=== PATIENT | female | born 1960 | race Caucasian/White ===

== ENCOUNTER 2017-04-21 16:19 | Inpatient (IN) | payer BC, SELFPAY ==
[~2017-04-21 16:19] MED LIST: ISOVUE-370 76%-LOCM 1 ML ONE
[2017-04-21] MEDS ORDERED: Nitroglycerin 0.4 MG TAB (25 Tab Bottle) ONE (16:30)
[2017-04-21] MEDS ORDERED: Ondansetron HCl/PF 4 MG/2 ML Vial ONE ×2 (16:35→19:50)
[2017-04-21 16:38] LABS: #Eosinphils 0.3 thou/uL (0.0-0.7); #Lymphocytes 3.2 thou/uL (1.20-3.40); #Monocytes 0.7 thou/uL (0.11-0.59); #Neutrophils 5.6 thou/uL (1.40-6.50); %Basophils 0.5 % (0.0-1.0); %Eosinophils 3.2 % (0.0-10.0); %Lymphocytes 32.1 % (21.0-51.0); %Monocytes 7.6 % (0.0-10.0); %Neutrophils 56.6 % (42.0-75.0); Hemoglobin 15.6 g/dL (12.0-16.0); Mean Corpuscular HGB CONC 35.1 g/dL (32.0-36.0); Mean Corpuscular Hemoglobin 32.9 pg (27.0-31.0); Mean Corpuscular Volume 93.7 fl (81.0-99.0); Platelet Count 305 thou/uL (130-400); RBC Distribution Width 12.3 % (11.5-14.5); Red Blood Cell (RBC) Count 4.74 mill/uL (4.20-5.40); White Blood Cell (WBC) Count 9.8 thou/uL (4.8-10.8)
[2017-04-21] MEDS ORDERED: Milk Of Magnesia 30 ML UDCUP ONE (16:49)
[2017-04-21] MEDS ORDERED: Lidocaine Viscous Sol 2% 15 ml UD Cup ONE (16:49)
[2017-04-21 16:58] LABS: ALT (SGPT) 54 U/L (8-55); AST (SGOT) 83 U/L (5-34); Albumin 4.8 g/dL (3.5-5.0); Alkaline Phosphatase 110 U/L (40-150); Anion Gap 17 mmol/L (10-20); BUN (Urea Nitrogen) 16 mg/dL (9.8-20.1); Bilirubin, Total 0.7 mg/dL (0.2-1.2); Calc. Creatinine Clearance 0 mL/min (70-130); Calcium 10.1 mg/dL (7.8-10.44); Carbon Dioxide 24 mmol/L (22-29); Chloride 102 mmol/L (98-107); Estimated GFR-MDRD 77; Glucose 94 mg/dL (70-105); Lipase 904 U/L (8-78); Potassium 3.7 mmol/L (3.5-5.1); Protein, Total 7.8 g/dL (6.0-8.3); Sodium 139 mmol/L (136-145)
[2017-04-21 17:03] LABS: CKMB 1.8 ng/mL (0-6.6); Troponin I Less than 0.010 ng/mL (< 0.028)
--- NOTE | 2017-04-21 18:20 | RAD ---
PORTABLE UPRIGHT FRONTAL CHEST RADIOGRAPH 04/21/17 COMPARISON: None. HISTORY: Chest pain with shortness of breath. FINDINGS: There is no pneumothorax, pleural fluid, focal consolidation, or alveolar edema. The heart and medias tinal contours are unremarkable. IMPRESSION: No acute findings. POS: [facility]
[2017-04-21] MEDS ORDERED: Morphine 4 MG/ML VIAL ONE (19:54)
[2017-04-21] MEDS ORDERED: Ondansetron HCl/PF 4 MG/2 ML Vial IVP PRN (21:20)
[2017-04-21] MEDS ORDERED: Ondansetron ODT 4 MG TAB SL PRN (21:20)
[2017-04-21] MEDS ORDERED: Acetaminophen 325 MG TAB PO PRN (21:20)
[2017-04-21 21:44] VITALS: BMI 34.6
[2017-04-21] MEDS ORDERED: HYDROcodone/Acetaminophen 5/325 mg Tablet PO PRN (21:54)
[2017-04-21] MEDS ORDERED: Morphine 5 MG/ML SYRINGE SLOW IVP PRN (21:56)
--- NOTE | 2017-04-21 21:57 | CT ---
CT OF ABDOMEN AND PELVIS 04/21/17 COMPARISON: None. HISTORY: Chest pain, shortness of breath and nausea. TECHNIQUE: Serial axial CT imaging obtained at 5 mm intervals from the lung bases through the pubic symphysis wi th IV contrast. Coronal reformatted imaging obtained. FINDINGS: The imaged lung bases are unremarkable. No free intraperitoneal air noted. There is mild gallbladder distention. Multiple gallstones are noted measuring up to 1.9 cm. The liver , spleen, pancreas, adrenal glands, and kidneys are unremarkable. Lack of oral contrast limits assessment of the bowel. Imaged portions of the appendix appear grossly unremarkable. There is distal colonic diverticulosis involving the sigmoid colon with scattered addit ional areas of colonic diverticulosis involving the descending colon and transverse colon. No convinc ing evidence for acute diverticulitis. The vascular structures of the abdomen/pelvis appear patent. No lymphadenopathy is seen within the ab domen or pelvis. The osseous structures demonstrate areas of degenerative change involving the lower lumbar spine facet joints. IMPRESSION: 1. Cholelithiasis with mild gallbladder distention. 2. Colonic diverticulosis with no convincing evidence for diverticulitis. 3. No evidence for appendicitis. POS: [facility]
[2017-04-21] MEDS: Sodium Chloride 0.9% 1,000 ML IV SCH (22:15)
--- NOTE | 2017-04-21 22:53 | HP ---
DATE OF ADMISSION: 04/21/2017 CHIEF COMPLAINT: Abdominal pain. HISTORY OF PRESENT ILLNESS: This is a 57-year-old white female with no known past medical history of any medical condition here. She is otherwise in very good health. She has a known history of drink ing alcohol. She drinks wine one glass every day. She has a strong family history of coronary arter y disease. Her father and her uncles at the age of 45-49. So she is always very cautious about her health and she does take good care of herself. She had a recent surgery, 3 months ago with hyst erectomy for fibroids and polyps. For this, she was very careful about her abdominal pain. Today, s he was in the yard at around 12:00 in the afternoon. She was working in the yard and she felt sudden onset of abdominal pain, which she thought could be the pain related to her recent surgery, but as t he pain was moving up towards the chest, she got frightened and had perspirations and was very anxiou s and she decided to come to the ER to evaluate for coronary artery disease. Patient was seen and sh e had a CT of the abdomen done, which showed evidence of pancreatitis. She also had elevated lipase levels. Based on her alcohol history and CT findings, it was decided that the patient has acute panc reatitis, so patient was started on IV fluids in the ER and with IV morphine, which did help her pain . She was not nauseous, no vomiting, no diarrhea, no constipation. She does have a gallbladder. CT of the abdomen did not show any gallstones in the gallbladder. No evidence of any gallbladder wall thickening was noted on the CT. PAST MEDICAL HISTORY: None. PAST SURGICAL HISTORY: Patient had hysterectomy and history of childbirth in the past. SOCIAL HISTORY: Patient is not a nonsmoker. She does drink alcohol, suggested about she drinks one can of wine every day. No history of illicit drug use. FAMILY HISTORY: Significant family history of coronary artery disease with father at the age of 49 of massive heart attack. One of her uncles also at the young age and also her grandfather d ied at young age with a massive heart attack. ALLERGIES: No known drug allergies. HOME MEDICATIONS: None. REVIEW OF SYSTEMS: All 12 systems are reviewed with the patient thoroughly and found to be negative at this time. System reviewed, HEENT, CVS, WASTE BALER, respiratory, GI, , musculoskeletal, skin and integ ument, psychiatric. All systems are reviewed. Constitutional: Weight loss or gain, sense of well-b eing, ability to conduct usual activities, exercise tolerance. Skin/Breast: Rash, itching, changes in hair growth or loss, nail changes, breast lumps, tenderness, swelling, nipple discharge. Eyes: V ision, double vision, tearing, blind spots, pain. ENT/Mouth: Headaches (location, time of onset, du ration, precipitating factors), vertigo, lightheadedness, injury. Vision, double vision, tearing, bl ind spots, pain, nose bleeding, colds, obstruction, discharge, dental difficulties, gingival bleeding , dentures, neck stiffness, pain, tenderness, masses in thyroid or other areas. Cardiovascular: Pre cordial pain, substernal distress, palpitations, syncope, dyspnea on exertion, orthopnea, nocturnal p aroxysmal dyspnea, edema, cyanosis, hypertension, heart murmurs, varicosities, phlebitis, claudicatio n. Respiratory: Pain, shortness of breath, wheezing, stridor, cough, hemoptysis, fever or night swe ats. Gastrointestinal: Poor appetite, dysphagia, indigestion, abdominal pain, heartburn, eructation , nausea, vomiting, hematemesis, jaundice, constipation, or diarrhea, abnormal stools (francisco-colored, tarry, bloody, greasy, foul smelling), flatulence, hemorrhoids, recent changes in bowel habits. Rafia tourinary: Urgency, frequency, dysuria, nocturia, hematuria, polyuria, oliguria, unusual (or change in) color of urine, stones, hesitancy, change in size of stream, dribbling, acute retention or incont inence, libido, potency. Musculoskeletal: Pain, swelling, redness or heat of muscles or joints, shepard itation, of motion, muscular weakness, atrophy, cramps. Neurologic/Psychiatric: Convulsions, paraly zes, tremor, incoordination, paresthesias, difficulties with memory of speech, sensory or motor distu rbances, or muscular coordination (ataxia, tremor), emotional problems, anxiety, depression, previous psychiatric care, unusual perceptions, hallucinations. Allergy/Immunologic: Skin rash, anemia, ble eding tendency, polydipsia, polyuria, intolerance to heat or cold. PHYSICAL EXAMINATION: VITAL SIGNS: Blood pressures of 152/67, heart rate is 53, respiration rate 18, saturation 96%. GENERAL: The patient is moderately built, moderately nourished, does not appear to be in acute distr ess at this time. She is alert and oriented x3. HEENT: Atraumatic, normocephalic. PERRLA. Extraocular movements are intact. Oral mucosa is dry. CARDIOVASCULAR: S1, S2 normal. No murmurs, rubs, or gallops. LUNGS: Bilateral air entry was equal. No wheezing, no crackles. ABDOMEN: Soft. Tenderness is noted in the right upper quadrant and also in the mid epigastrium. Ot herwise, normal bowel sounds were heard. MUSCULOSKELETAL: No calf tenderness. No pedal edema. No joint tenderness, no joint swelling. SKIN: No cyanosis, no erythema, no rash, no pallor. WASTE BALER: Cranial nerve examination II-XII intact. No focal deficits were noted. PSYCHIATRIC: No signs of suicidal ideation or signs of ninoska. LABORATORY DATA: Sodium is 139, potassium 3.7, chloride is 102, bicarbonate is 24, BUN is 16, creati nine 0.78. AST is 83, ALT is 54. Lipase is 904. WBC 9.8, hemoglobin 15.6, hematocrit 44.1, platele ts is 304. ASSESSMENT AND PLAN: 1. Acute pancreatitis, likely alcoholic. 2. Chronic alcoholism. 3. Severe dehydration. PLAN: 1. Plan is to closely monitor this patient, we will keep the patient on clear liquids at this time, as she has normal bowel sounds and no nausea and no vomiting was noted. We will order ultrasound of the right upper quadrant to look for any evidence of gallstones contributing to the pancreatitis. We will do a lipid profile in the morning to look for any triglycerides contributing to the pancreatiti s. 2. We will continue to treat the pain with morphine 4 mg q.3 hours p.r.n. and continue the IV fluids at this time at 125 mL an hour. 3. Patient has severe dehydration. We will plan to continue that IV fluids hydration and slowly adv ance the diet once the lipase level comes down. 4. Patient has strong family history of coronary artery disease. She does not have any chest pains right now, but we will closely monitor if patient develops any further chest pains. We will need to rule out any evidence of coronary artery disease. 5. DVT prophylaxis is Lovenox 40 mg subcutaneous daily. I spent 75 minutes on this patient at the time of dictation.
[2017-04-22 05:08] LABS: #Basophils 0.1 thou/uL (0.0-0.2); #Eosinphils 0.1 thou/uL (0.0-0.7); #Lymphocytes 1.3 thou/uL (1.20-3.40); #Monocytes 0.3 thou/uL (0.11-0.59); #Neutrophils 2.5 thou/uL (1.40-6.50); %Basophils 1.2 % (0.0-1.0); %Eosinophils 3.4 % (0.0-10.0); %Lymphocytes 30.6 % (21.0-51.0); %Monocytes 6.8 % (0.0-10.0); Hemoglobin 13.7 g/dL (12.0-16.0); Mean Corpuscular HGB CONC 35.4 g/dL (32.0-36.0); Mean Corpuscular Hemoglobin 34.1 pg (27.0-31.0); Mean Corpuscular Volume 96.4 fl (81.0-99.0); Mean Platelet Volume 7.4 fL (7.4-10.4); Platelet Count 199 thou/uL (130-400); RBC Distribution Width 12.2 % (11.5-14.5); Red Blood Cell (RBC) Count 4.02 mill/uL (4.20-5.40); White Blood Cell (WBC) Count 4.3 thou/uL (4.8-10.8)
[2017-04-22 05:28] LABS: ALT (SGPT) 932 U/L (8-55); AST (SGOT) 1007 U/L (5-34); Alkaline Phosphatase 109 U/L (40-150); Anion Gap 11 mmol/L (10-20); BUN (Urea Nitrogen) 11 mg/dL (9.8-20.1); Bilirubin, Total 0.8 mg/dL (0.2-1.2); Calc. Creatinine Clearance 134 mL/min (70-130); Calcium 8.8 mg/dL (7.8-10.44); Carbon Dioxide 25 mmol/L (22-29); Cardiac Risk 3.5 (Less than 4.5); Chloride 107 mmol/L (98-107); Cholesterol 163 mg/dl (< 200 Desired); Estimated GFR-MDRD 83; Globulin 2.3 g/dL (2.4-3.5); Glucose 88 mg/dL (70-105); HDL Cholesterol 47 mg/dL (>60 Neg Risk); LDL Cholesterol, Calculated 101 mg/dL; Potassium 3.9 mmol/L (3.5-5.1); Protein, Total 6.3 g/dL (6.0-8.3); Sodium 139 mmol/L (136-145); Triglycerides 74 mg/dL (Less than 150)
[2017-04-22 05:43] LABS: Lipase 1922 U/L (8-78)
--- NOTE | 2017-04-22 07:30 | ULT ---
GALLBLADDER ULTRASOUND: HISTORY: A 57-year-old female with a history of abdominal pain. FINDINGS: Cholelithiasis with at least one large gallstone measuring 2.3 cm. Minimally thickened gallbladder w all with some minimal pericholecystic fluid. The Maddox's sign was positive according to the technol ogist. Common bile duct 0.4 cm. Liver echogenicity has increased, evidence for some fatty change. Visualized pancreas and right kidney are unremarkable. IMPRESSION: Cholelithiasis with at least one large gallstone as well as some gallbladder wall thickening and mini mal pericholecystic fluid with a positive Maddox's sign concern for acute cholecystitis as well. No ductal dilatation. Coarse liver echogenicity. POS: [facility]
[2017-04-22] MEDS: Folic Acid 1 MG TAB PO SCH (08:50)
[2017-04-22] MEDS: Sodium Chloride 0.9% 1,000 ML IV SCH ×3 (08:51→20:36)
[2017-04-22] MEDS ORDERED: Enoxaparin Sodium 40 MG/0.4 ML SYRINGE SC SCH (09:00)
[2017-04-22] MEDS ORDERED: Docusate 100 MG CAP PO SCH (09:00)
[2017-04-22] MEDS ORDERED: Famotidine 40 MG/4 ML VIAL SLOW IVP SCH (09:00)
[2017-04-22] MEDS ORDERED: Meropenem 1 GM in Sodium Chloride 0.9% 100 ML IVPB SCH (09:00)
[2017-04-22] MEDS ORDERED: Meropenem 1 GM in Sterile Water 20 ML SLOW IVP SCH (10:30)
[2017-04-22 13:16] LABS: HBCM Index 0.09 S/CO (0-0.79); HBSAg Index 0.21 S/CO (0-0.99); Hep A IgM AB Non-Reactive (NonReactive); Hep A IgM S/CO 0.08 S/CO (0-0.79); Hep B Surf Ag Non-Reactive S/CO (NonReactive); Hep C IgG Ab Non-Reactive (NonReactive); Hep C Index 0.06 S/CO (0-0.79); Hepatitis B Core IGM Abs Non-Reactive (NonReactive)
--- NOTE | 2017-04-22 13:21 | CON ---
DATE OF CONSULTATION: 04/22/2017 HISTORY OF PRESENT ILLNESS: The patient is a 57-year-old female who was in her normal stat e of health until the day of admission when she developed severe upper abdominal pain. She described this as a band-like pressure pain that was severe. It radiated to the midback. It was associated w ith nausea and vomiting. She came to the emergency room and diagnosed with pancreatitis. She has no t had a previous episode of pancreatitis that she is aware of. She had similar episode of pain appro ximately 10 years ago. She denies any weight loss, any melena, hematochezia, or any change in bowel function. PAST MEDICAL HISTORY: Essentially negative. MEDICATIONS: None. ALLERGIES: No known allergies. SOCIAL HISTORY: She does not smoke. Drinks one glass of wine per day. FAMILY HISTORY: Negative for GI or liver disease. She does have an uncle that of pancreatitis. REVIEW OF SYSTEMS: Ten systems were reviewed and were negative except for above. PHYSICAL EXAMINATION: GENERAL: Shows an overweight female in no acute distress. HEENT: Unremarkable. NECK: Supple. CHEST: Clear. CARDIOVASCULAR: Regular rate and rhythm. ABDOMEN: Soft and nontender without organomegaly or masses. Bowel sounds are present and normoactiv e. RECTAL: Deferred. EXTREMITIES: Normal. NEUROLOGIC: Nonfocal. LABORATORY DATA AND IMAGING DATA: Shows admission white blood cell count of 9.8, hemoglobin 15.6, he matocrit of 44.4. Repeat hemoglobin is 13.7. Laboratory data shows an AST of 83 and repeat is 1007, ALT of 54 and repeat is 932, total bilirubin is 0.8, lipase initially is 904 and now is 1922. Abdom inal and pelvic CT scan shows cholelithiasis with mild gallbladder distention, diverticula without di verticulitis. Abdominal ultrasound shows cholelithiasis, gallbladder wall thickening and minimal per icholecystic fluid with a positive Maddox sign. No ductal dilatation is appreciated as common duct i s 4 mm, coarse liver echogenicity. ASSESSMENT: Gallstone pancreatitis. RECOMMENDATIONS: 1. N.p.o. 2. IV fluids. 3. Analgesics. 4. Surgical consultation.
[2017-04-22] MEDS: Meropenem 1 GM in Sterile Water 20 ML SLOW IVP SCH ×2 (14:39→20:34)
[2017-04-22] MEDS ORDERED: Pantoprazole 40 MG VIAL IVP SCH (14:45)
[2017-04-22] MEDS: traMADol HCl 50 MG TAB PO PRN ×2 (14:53→20:34)
[2017-04-22] MEDS ORDERED: Ketorolac Tromethamine 30 MG/ML VIAL ONE (15:22)
[2017-04-22] MEDS ORDERED: Dexamethasone 20 MG/5 ML VIAL ONE (15:22)
[2017-04-22] MEDS ORDERED: Propofol 200 MG/20 ML VIAL ONE (15:22)
[2017-04-22] MEDS ORDERED: ePHEDrine/0.9% NaCl/PF SYRINGE 50 mg/10 ml ONE (15:22)
[2017-04-22] MEDS ORDERED: PHENYLEPHRINE-NS 100 MCG/ML 10 ML SYRINGE ONE (15:22)
[2017-04-22] MEDS ORDERED: Ondansetron HCl/PF 4 MG/2 ML Vial ONE (15:22)
[2017-04-22] MEDS ORDERED: Lidocaine 1% PF 5 ML VIAL ONE (15:22)
[2017-04-22] MEDS ORDERED: Glycopyrrolate 0.2 MG/ML 5 ML SYRINGE ONE (15:22)
[2017-04-22] MEDS ORDERED: Calcium Carbonate 500 MG ChewTAB PO PRN (17:02)
--- NOTE | 2017-04-22 19:51 | CON ---
DATE OF CONSULTATION: 04/22/2017 ATTENDING PHYSICIAN: Dr. Yandel Buitrago. HISTORY OF PRESENT ILLNESS: Ms. Tejeda is a 57-year-old lady who presented to the ER yesterday when she developed a sudden epigastric pain. She described it as a pressure that began to move upwards t owards her chest. Concern for cardiovascular causes, she sought care in the ER. She was diagnosed w ith pancreatitis. She reports she is not a drinker and has never had an episode of pancreatitis. Bryson freeman does relate a history approximately 8 years ago of the same type of pain that she did not seek emiliano tment for and was self-limiting. Lipase in the emergency department was 904. Today, lipase is up to 1922. Gallbladder ultrasound demonstrated cholelithiasis with at least one large gallstone, some ga llbladder wall thickening and pericholecystic fluid. She denies fever, chills, or weight loss. She denies nausea or vomiting. She does report one episode of diarrhea associated with pain yesterday. Since she has been admitted one day ago, pain has essentially resolved. She is now seen in [facility]. Trauma Services was consulted to evaluate for the need for urgent surgical intervention for cho lecystectomy. PAST MEDICAL HISTORY: None. PAST SURGICAL HISTORY: Hysterectomy 3 months ago. MEDICATIONS: None. ALLERGIES: No known allergies. SOCIAL HISTORY: Drinks one glass of wine per day. No tobacco, no drug use. REVIEW OF SYSTEMS: Constitutional: Denies fever, chills, or recent weight loss. HEENT: Denies com plaint. Respiratory: Denies complaint. Denies cough, denies wheezing or shortness of breath. Card iovascular: Denies chest pain, denies palpitations. Abdomen: Reports pain in epigastric and right upper quadrant area that has now since resolved. Reports one episode of diarrhea yesterday. Extremi ties: Denies complaint. Back: Denies complaint. Integumentary: Denies complaint. Lymphatic/Heme : Denies complaint. PHYSICAL EXAMINATION: VITAL SIGNS: Temperature 98.4, pulse 57, respirations 16, O2 sat 95% on room air, blood pressure 127 /78. GENERAL: Well-developed, well-nourished female, lying in bed, in no acute distress. HEENT: Atraumatic, normocephalic. CARDIOVASCULAR: Regular rate and rhythm. PULMONARY: No respiratory distress. ABDOMEN: Soft, nondistended, mild tenderness in the mid epigastric region with palpation. Otherwise , no tenderness, no guarding, no rigidity, no masses. EXTREMITIES: Moves all extremities. NEUROLOGIC: GCS is 15. Alert and oriented x3. LABORATORY DATA: WBC 4.3, RBC 4.02, hemoglobin 13.7, hematocrit 38.7, platelets 199. Chemistry: So dium 139, potassium 3.9, chloride 107, carbon dioxide 25, BUN 11, creatinine 0.73, total bilirubin 1. 0. AST 1007, up from 83 yesterday. ALT 932, up from 54 yesterday. Lipase 1922, up from 904 yesterd ay. DIAGNOSTIC IMAGING: CT scan of abdomen and pelvis shows cholelithiasis with mild gallbladder distent ion and diverticulosis. Abdominal ultrasound shows cholelithiasis, gallbladder wall thickening and m inimal pericholecystic fluid. ASSESSMENT: Clinical and diagnostic examination consistent with gallstone pancreatitis. Abdominal p ain, now essentially resolved. Lipase, AST, ALT are increasing. RECOMMENDATIONS: The patient would likely benefit from cholecystectomy. We will continue to follow and trend enzymes. We will consider surgical intervention when enzymes trend downward. Continue n.p .o., IV fluids, IV analgesia. We will reevaluate in a.m. The patient was reviewed with Dr. Buitrago, who agrees with plan.
[2017-04-22] MEDS ORDERED: Iothalamate Meglumine 60% 50 ML VIAL FS ONE (21:29)
[2017-04-22] MEDS ORDERED: Bupivacaine/Epinephrine 0.25% 30 ML VIAL ONE (21:29)
[2017-04-22] MEDS ORDERED: Ketorolac Tromethamine 30 MG/ML VIAL IVP SCH (21:30)
[2017-04-22] MEDS ORDERED: Fentanyl 250 MCG/5 ML VIAL ONE (21:31)
--- NOTE | 2017-04-22 22:17 | PDOC.PN ---
- Subjective Encounter Start Date: 04/22/17 Encounter Start Time: 09:45 Patient seen and examined. No new complaints. No overnight events. Abd pain improving. No fever/chills. Tolerated clear liqd diet - Objective Resuscitation Status: Resuscitation Status FULL:Full Resuscitation MAR Reviewed: Yes Vital Signs & Weight: Vital Signs (12 hours) Temp Pulse Resp BP Pulse Ox 04/22/17 20:16 98 F 62 18 149/84 H 99 04/22/17 19:23 98.4 F 57 L 16 04/22/17 16:12 98.4 F 57 L 16 127/78 95 04/22/17 11:46 97.8 F 51 L 16 112/50 L 96 I&O: 04/21/17 04/22/17 04/23/17 06:59 06:59 06:59 Intake Total 1490 Balance 1490 Result Diagrams: 04/22/17 03:46 04/22/17 03:46 Additional Labs: Laboratory Tests 04/22/17 03:46 AST 1007 H ALT 932 H Lipase 1922 H Radiology Reviewed by me: No ([facility] - cholelithiasis) Phys Exam - Physical Examination Constitutional: NAD Respiratory: no wheezing, no rhonchi Cardiovascular: RRR, no rub Gastrointestinal: soft, positive bowel sounds mild epig/RUQ tenderness Musculoskeletal: no edema Neurological: moves all 4 limbs Dx/Plan - Plan DVT proph w/SCDs IMPRESSION: 1. Gallstone pancreatitis 2. Cholelithiasis 3. Abn LFTs - prob due to #1 4. Obesity BMI 34.7 PLAN: * Consult GI/Surg * Start Meropenem for ?acute cholecystitis * AM labs * Check triglyceride in AM * NPO * Cont IVF * Pain control Review of Systems - Medications/Allergies Allergies/Adverse Reactions: Allergies Allergy/AdvReac Type Severity Reaction Status Date / Time No Known Allergies Allergy Verified 04/21/17 23:01 Medications: Current Medications Calcium Carbonate (Tums) 1,000 mg PO Q4H PRN PRN Reason: Heartburn or Indigestion Folic Acid (Folvite) 1 mg PO DAILY [facility] Last Admin: 04/22/17 08:50 Dose: Not Given Sodium Chloride (Normal Saline 0.9%) 1,000 mls @ 125 mls/hr IV .Q8H [facility] Last Admin: 04/22/17 20:36 Dose: 1,000 mls Meropenem 1 gm/ Sterile Water 20 mls @ 240 mls/hr SLOW IVP Q8HR [facility] Last Admin: 04/22/17 20:34 Dose: 20 mls Ketorolac Tromethamine (Toradol) 30 mg IVP Q6HR [facility] Stop: 04/27/17 18:01 Ketorolac Tromethamine (Toradol) 15 mg IVP NOW [facility] Stop: 04/22/17 23:30 Last Admin: 04/22/17 21:19 Dose: 15 mg Pantoprazole Sodium (Protonix) 40 mg IVP DAILY [facility] Thiamine HCl (Thiamine) 100 mg PO DAILY [facility] Last Admin: 04/22/17 08:50 Dose: Not Given Tramadol HCl (Ultram) 50 mg PO Q6H PRN PRN Reason: Moderate Pain (4-6) Last Admin: 04/22/17 20:34 Dose: 50 mg
[2017-04-22] MEDS ORDERED: Promethazine HCl 25 MG/ML VIAL SLOW IVP PRN (23:44)
[2017-04-22] MEDS ORDERED: Promethazine HCl 25 MG/ML VIAL IM PRN (23:44)
[2017-04-22] MEDS ORDERED: Ondansetron HCl/PF 4 MG/2 ML Vial IVP PRN (23:44)
[2017-04-23] MEDS ORDERED: Fentanyl 250 MCG/5 ML VIAL ONE (00:06)
[2017-04-23] MEDS: Ketorolac Tromethamine 30 MG/ML VIAL IVP SCH ×2 (01:05→06:03)
[2017-04-23] MEDS: traMADol HCl 50 MG TAB PO PRN ×2 (02:35→15:31)
[2017-04-23 04:39] LABS: #Basophils 0.1 thou/uL (0.0-0.2); #Lymphocytes 0.6 thou/uL (1.20-3.40); #Monocytes 0.1 thou/uL (0.11-0.59); #Neutrophils 5.4 thou/uL (1.40-6.50); %Eosinophils 0.2 % (0.0-10.0); %Lymphocytes 8.9 % (21.0-51.0); %Monocytes 1.7 % (0.0-10.0); %Neutrophils 88.2 % (42.0-75.0); Hemoglobin 13.6 g/dL (12.0-16.0); Mean Corpuscular HGB CONC 34.5 g/dL (32.0-36.0); Mean Corpuscular Hemoglobin 32.8 pg (27.0-31.0); Mean Corpuscular Volume 95.1 fl (81.0-99.0); Mean Platelet Volume 7.1 fL (7.4-10.4); Platelet Count 187 thou/uL (130-400); RBC Distribution Width 12.3 % (11.5-14.5); Red Blood Cell (RBC) Count 4.14 mill/uL (4.20-5.40); White Blood Cell (WBC) Count 6.1 thou/uL (4.8-10.8)
[2017-04-23 04:59] LABS: ALT (SGPT) 598 U/L (8-55); AST (SGOT) 338 U/L (5-34); Albumin 4.3 g/dL (3.5-5.0); Alkaline Phosphatase 118 U/L (40-150); Anion Gap 11 mmol/L (10-20); BUN (Urea Nitrogen) 7 mg/dL (9.8-20.1); Bilirubin, Total 0.6 mg/dL (0.2-1.2); Calc. Creatinine Clearance 142 mL/min (70-130); Calcium 8.3 mg/dL (7.8-10.44); Carbon Dioxide 24 mmol/L (22-29); Chloride 105 mmol/L (98-107); Estimated GFR-MDRD 88; Globulin 2.3 g/dL (2.4-3.5); Glucose 128 mg/dL (70-105); Lipase 113 U/L (8-78); Potassium 3.9 mmol/L (3.5-5.1); Protein, Total 6.6 g/dL (6.0-8.3); Sodium 136 mmol/L (136-145)
[2017-04-23] MEDS: Meropenem 1 GM in Sterile Water 20 ML SLOW IVP SCH (06:04)
--- NOTE | 2017-04-23 06:10 | OP ---
DATE OF OPERATION 04/22/2017 PREOPERATIVE DIAGNOSES: 1. Acute cholecystitis with cholelithiasis. 2. Resolving acute gallstone pancreatitis. POSTOPERATIVE DIAGNOSES: 1. Acute cholecystitis with cholelithiasis. 2. Resolving acute gallstone pancreatitis. PROCEDURES PERFORMED: 1. Laparoscopic cholecystectomy. 2. Intraoperative cholangiogram. SURGEON: Yandel Buitrago D.O. ANESTHESIA: General endotracheal. ESTIMATED BLOOD LOSS: 10 mL. FLUIDS GIVEN: 1800 mL crystalloids. SPONGE AND INSTRUMENT COUNT: Certified as correct x2. COMPLICATIONS: None apparent to operation. INDICATIONS FOR PROCEDURE: This is a 57-year-old woman presented with recurrent epigastric right upper quadrant abdominal pain. On clinical radiographic examination was consistent with acute cholecystitis, cholelithiasis, and gallstone pancreatitis. Clinical examination reveals the patient with resolved abdominal pain. It was suspected she might have passed a common bile duct stone. Decision was made to bring her to the operating room for laparoscopic cholecystectomy with intraopera tive cholangiogram. Findings are consistent with gallbladder in the usual anatomic location completely encased by omental adhesions. DESCRIPTION OF PROCEDURE: Informed consent obtained from the patient who was brought to the operatin g room and placed in supine position. Following general anesthesia, the abdomen is sterilely prepped and draped in usual fashion. The skin below the umbilicus was infiltrated with 0.25% Marcaine with epinephrine. A small curvilinear infraumbilical incision is made using an 11 scalpel. Umbilical sta lk was then grasped with Caro's and elevated. Veress needle inserted through the incision placed i n the pleural cavity through which the abdomen was insufflated with 2 liters of CO2 gas. Intraabdomi nal pressure was noted at 1 mmHg. Following abdominal insufflation, Veress needle was removed and a 5 mm trocar inserted through the incision and placed in the peritoneal cavity under laparoscopy using the Visiport. Laparoscopy confirmed proper placement of the port, no injuries to underlying structu res. An additional laparoscopy reveals gallbladder in the usual anatomic location completely encased by omental adhesions. Under laparoscopy 12 mm epigastric and two 5 mm right lateral subcostal ports were placed after the overlying skin were infiltrated with 0.25% Marcaine with epinephrine and appro priate incisions made. The patient was placed in a reverse Trendelenburg position, rotated to her le ft. I introduced a [place] dissector with cautery to take down omental adhesions to reveal the fund us of the gallbladder. A Prestige grasper introduced through the right lateral subcostal port graspi ng the fundus of the gallbladder which was elevated cephalad. Omental adhesions were then taken down from the remainder of the gallbladder. A second Prestige grasper introduced through the right media l subcostal port grasping the Patel's pouch which was retracted laterally. The cystic duct was carefully dissected free from surrounding structures at the triangle of Calot. I placed 1 clip at the junction of the cystic duct and gallbladder. Cystic artery dissected free from surrounding structures and divided between clips. Two clips applied proximally and 1 clip at the ju nction of the cystic artery and gallbladder. At this juncture, we decided to proceed with cholangiog danielle. To accomplish this, a stab incision was made in the right upper quadrant introducing the needle throu gh which the cholangiocath was brought into the peritoneal cavity after it has been flushed with sali ne. Cystotomy is made using EndoShears. The cystic duct proximal to the securing clip. The cholangiocatheter was then inserted into the cystic ductal lumen securing this with a single clip . It was flushed first with saline and then cholangiogram was completed using 15 mL of full strength Conray contrast under fluoroscopy. No filling defects were noted. Total fluoroscopy time was 21 se conds. Following cholangiography the securing clip was removed. Catheters removed from the abdominal cavity . The cystic duct was then divided between clips, and applied 2 clips proximally. Gallbladder itsel f was removed from the liver bed using cautery with good hemostasis. Gallbladder is delivered out of the abdominal cavity using an EndoCatch. Operative site was inspected for good hemostasis. All cli ps remain in place, no bile stains present. Finding no other pathology, laparoscopy was terminated. Fascia of the epigastric port was closed usi ng 0 Vicryl suture and Endo closure device under laparoscopy. The abdomen was desufflated. All port s and instruments removed and accounted for. Skin incisions closed using 4-0 Monocryl suture in subc uticular fashion. Dermabond was applied over the incisions. The patient tolerated the operation wit hout any apparent complications and was returned to the recovery room in satisfactory condition.
--- NOTE | 2017-04-23 07:33 | RAD ---
INTRAOPERATIVE CHOLANGIOGRAM: DATE: 04/22/17. HISTORY: Post cholecystectomy. Cholelithiasis with sonographic findings suggesting acute cholecystitis. FINDINGS/IMPRESSION: Two intraoperative fluoroscopic images from intraoperative cholangiogram are submitted for interpreta tion. The provided images demonstrate surgical instruments overlying the right upper quadrant. The cystic duct is cannulated. The common duct as well as a small portion of the hepatic bile ducts are opacified and demonstrate no filling defects, and there is evidence of free spill of contrast into th e small bowel. Correlation with intraoperative findings is recommended. POS: [facility]
[2017-04-23] MEDS: Sodium Chloride 0.9% 1,000 ML IV SCH (08:04)
[2017-04-23] MEDS: Folic Acid 1 MG TAB PO SCH (08:10)
[2017-04-23] MEDS: Pantoprazole 40 MG VIAL IVP SCH (08:11)
--- NOTE | 2017-04-23 09:11 | PRG ---
DATE OF SERVICE: 04/23/2017 SUBJECTIVE: The patient is feeling much better today. She is a little sore from surgery, but no lily sea or vomiting, tolerating diet well. OBJECTIVE: VITAL SIGNS: Temperature 98.3, pulse 64, respiratory rate 18, blood pressure 109/65. CHEST: Clear. CARDIOVASCULAR: Regular rate and rhythm. ABDOMEN: Soft, tender over the incisional sites, but otherwise benign. LABORATORY DATA: Shows hemoglobin 13.6 and hematocrit 39.4. Chemistries show an AST of 338, ALT of 598, lipase of 113. ASSESSMENT: Gallstone pancreatitis - status post laparoscopic cholecystectomy with negative intraope rative cholangiogram. RECOMMENDATIONS: 1. Stable from Gastroenterology standpoint for discharge. 2. We will sign off.
[2017-04-23] MEDS ORDERED: Ondansetron HCl/PF 4 MG/2 ML Vial IVP PRN (13:42)
--- NOTE | 2017-04-23 13:44 | PDOC.PN ---
- Subjective Encounter Start Date: 04/23/17 Encounter Start Time: 13:42 Subjective: still nauseated.vomited after breakfast and lunch -: no AP/diarrhea - Objective Resuscitation Status: Resuscitation Status FULL:Full Resuscitation MAR Reviewed: Yes Vital Signs & Weight: Vital Signs (12 hours) Temp Pulse Resp BP Pulse Ox 04/23/17 11:38 98.0 F 63 18 111/70 96 04/23/17 08:00 98.3 F 64 18 109/65 94 L 04/23/17 06:00 98.1 F 70 18 116/60 92 L 04/23/17 02:39 98.2 F 66 18 107/67 97 I&O: 04/22/17 04/23/17 04/24/17 06:59 06:59 06:59 Intake Total 1490 1999 480 Balance 1490 1999 480 Result Diagrams: 04/23/17 04:09 04/23/17 04:09 Additional Labs: Laboratory Tests 04/21/17 04/22/17 04/23/17 16:28 03:46 04:09 Total Bilirubin 0.7 0.8 0.6 AST 83 H 1007 H 338 H ALT 54 932 H 598 H Lipase 904 H 1922 H 113 H Phys Exam - Physical Examination Constitutional: NAD walking around in hallways HEENT: PERRLA, moist MMs, sclera anicteric, oral pharynx no lesions Neck: no nodes, no JVD, supple, full ROM Respiratory: no wheezing, no rales, no rhonchi, clear to auscultation bilateral Cardiovascular: RRR, no significant murmur Gastrointestinal: soft, non-tender, no distention, positive bowel sounds surgical scars look good Musculoskeletal: no edema, pulses present Neurological: non-focal, normal sensation, moves all 4 limbs Lymphatic: no nodes Psychiatric: normal affect, A&O x 3 Skin: no rash Dx/Plan (1) Gallstone pancreatitis Code(s): K85.10 - BILIARY ACUTE PANCREATITIS WITHOUT NECROSIS OR INFECTION Status: Acute Comment: s/p lap milton and negative intraoperative cholangiogram (2) Cholecystitis Code(s): K81.9 - CHOLECYSTITIS, UNSPECIFIED Status: Acute (3) Cholelithiasis Code(s): K80.20 - CALCULUS OF GALLBLADDER W/O CHOLECYSTITIS W/O OBSTRUCTION Status: Acute (4) LFTs abnormal Code(s): R94.5 - ABNORMAL RESULTS OF LIVER FUNCTION STUDIES Status: Acute Comment: due to #1 (5) Obesity (BMI 30.0-34.9) Code(s): E66.9 - OBESITY, UNSPECIFIED Status: Acute - Plan PT/OT, DVT proph w/SCDs change to full liquid diet.add Zofran prn. -: LFT all trending down. -: re evaluate in am . -: cont antibiotics. -: am labs * . Review of Systems - Review of Systems Constitutional: negative: fever, chills, sweats, weakness, malaise, other ENT: negative: Ear Pain, Ear Discharge, Nose Pain, Nose Discharge, Nose Congestion, Mouth Pain, Mouth Swelling, Throat Pain, Throat Swelling, Other Respiratory: negative: Cough, Dry, Shortness of Breath, Hemoptysis, SOB with Excertion, Pleuritic Pain, Sputum, Wheezing Cardiovascular: negative: chest pain, palpitations, orthopnea, paroxysmal nocturnal dyspnea, edema, light headedness, other Gastrointestinal: Nausea, Vomiting. negative: Abdominal Pain, Diarrhea, Constipation, Melena, Hematochezia, Other Genitourinary: negative: Dysuria, Frequency, Incontinence, Hematuria, Retention , Other Musculoskeletal: negative: Neck Pain, Shoulder Pain, Arm Pain, Back Pain, Hand Pain, Leg Pain, Foot Pain, Other Neurological: negative: Weakness, Numbness, Incoordination, Change in Speech, Confusion, Seizures, Other - Medications/Allergies Allergies/Adverse Reactions: Allergies Allergy/AdvReac Type Severity Reaction Status Date / Time No Known Allergies Allergy Verified 04/21/17 23:01 Medications: Current Medications Calcium Carbonate (Tums) 1,000 mg PO Q4H PRN PRN Reason: Heartburn or Indigestion Folic Acid (Folvite) 1 mg PO DAILY [facility] Last Admin: 04/23/17 08:10 Dose: 1 mg Ondansetron HCl (Zofran) 4 mg IVP Q6H PRN PRN Reason: Nausea/Vomiting Pantoprazole Sodium (Protonix) 40 mg IVP DAILY [facility] Last Admin: 04/23/17 08:11 Dose: 40 mg Thiamine HCl (Thiamine) 100 mg PO DAILY [facility] Last Admin: 04/23/17 08:10 Dose: 100 mg Tramadol HCl (Ultram) 50 mg PO Q6H PRN PRN Reason: Moderate Pain (4-6) Last Admin: 04/22/17 20:34 Dose: 50 mg Tramadol HCl (Ultram) 100 mg PO Q6H PRN PRN Reason: Severe Pain (7-10) Last Admin: 04/23/17 02:35 Dose: 100 mg
--- NOTE | 2017-04-23 14:49 | PRG ---
DATE OF SERVICE: 04/23/2017 ATTENDING PHYSICIAN: Dr. Chris Mckeon. SUBJECTIVE: The patient is postoperative day #1, status post laparoscopic cholecystectomy. She had been admitted with gallstone pancreatitis. This morning, her liver enzymes and lipase are significan tly decreased. She is seen this morning sitting up in the bed. She has attempted a clear liquid t. OBJECTIVE: VITAL SIGNS: Temperature 98.0, pulse 63, respirations 18, O2 sat 96%, blood pressure 111/70. GENERAL: Well-developed, well-nourished female lying in bed in no acute distress. PULMONART: Bilateral breath sounds clear. Respirations are even and unlabored. CARDIOVASCULAR: Regular rate and rhythm. Heart sounds normal. ABDOMEN: Soft, nondistended. Some incisional tenderness noted. Laparoscopic surgical incisions wit hout signs of infection. EXTREMITIES: Moves all extremities well. Cap refill brisk in all extremities. LABORATORY DATA: WBC 6.1, RBC 4.14, hemoglobin 13.6, hematocrit 39.4, platelets 187. Chemistry: So dium 136, potassium 3.9, chloride 105, carbon dioxide 24, BUN 7, creatinine 0.69, AST 338 down from 1 007 yesterday, ALT 598 down from 932 yesterday, total bilirubin 0.6 down from 0.8 yesterday, lipase 1 13 down from 1922 yesterday. ASSESSMENT: 1. Admitted with gallstone pancreatitis. 2. Resolving elevated liver enzymes and lipase. 3. Status post laparoscopic cholecystectomy. 4. Patient has had some nausea today after clear liquid diet. No return of bowel function yet. PLAN: 1. Continue clear liquid diet at this point. Patient was unable to advance to regular diet without nausea. 2. Tramadol for oral analgesia. 3. Encourage ambulation. 4. Patient may be discontinued from a surgical standpoint when bowel function has returned and she i s able to tolerate diet without nausea. The patient was seen and examined with Dr. Mckeon who agrees with plan.
[2017-04-23] MEDS ORDERED: Ibuprofen 600 MG TAB PO PRN (21:51)
--- NOTE | 2017-04-23 22:36 | PRG ---
DATE OF SERVICE: 04/23/2017 SUBJECTIVE: Autumn Tejeda is a 57-year-old female postop day #1, status post laparoscopic cholecyste ctomy. The patient was unable to tolerate a regular diet earlier today, which was associated with na usea and vomiting. She was given Zofran and kept on a full liquid diet. Upon my evaluation this tyron lisa, the patient states that she is now tolerating her diet. Pain is controlled with p.o. analgesic s. OBJECTIVE: VITAL SIGNS: Reviewed and stable. GENERAL: The patient is resting in bed in no acute distress. RESPIRATORY: Breathing is nonlabored. ABDOMEN: Soft, nontender, nondistended. Surgical sites are clean, dry, and intact. ASSESSMENT AND PLAN: As documented in daily progress note. Advance diet in the morning. If she betito erates this, we will likely be approved for discharge tomorrow. Continue supportive care as ordered. Continue to monitor.
[2017-04-24 05:32] LABS: #Eosinphils 0.4 thou/uL (0.0-0.7); #Lymphocytes 1.9 thou/uL (1.20-3.40); #Monocytes 0.4 thou/uL (0.11-0.59); #Neutrophils 3.7 thou/uL (1.40-6.50); %Basophils 0.5 % (0.0-1.0); %Eosinophils 6.5 % (0.0-10.0); %Lymphocytes 29.6 % (21.0-51.0); %Neutrophils 57.5 % (42.0-75.0); Hemoglobin 12.5 g/dL (12.0-16.0); Mean Corpuscular HGB CONC 34.5 g/dL (32.0-36.0); Mean Corpuscular Hemoglobin 32.7 pg (27.0-31.0); Mean Corpuscular Volume 94.8 fl (81.0-99.0); Mean Platelet Volume 7.2 fL (7.4-10.4); Platelet Count 214 thou/uL (130-400); RBC Distribution Width 12.3 % (11.5-14.5); Red Blood Cell (RBC) Count 3.83 mill/uL (4.20-5.40); White Blood Cell (WBC) Count 6.4 thou/uL (4.8-10.8)
[2017-04-24 07:50] LABS: Albumin 4.3 g/dL (3.5-5.0)
[2017-04-24 07:51] LABS: Calcium 9.2 mg/dL (7.8-10.44); Chloride 104 mmol/L (98-107); Sodium 139 mmol/L (136-145)
[2017-04-24 07:52] LABS: Glucose 94 mg/dL (70-105)
[2017-04-24 07:53] LABS: Protein, Total 6.9 g/dL (6.0-8.3)
[2017-04-24 07:54] LABS: Anion Gap 12 mmol/L (10-20); Bilirubin, Total 0.5 mg/dL (0.2-1.2); Carbon Dioxide 27 mmol/L (22-29)
[2017-04-24 07:55] LABS: Alkaline Phosphatase 112 U/L (40-150)
[2017-04-24 07:56] LABS: BUN (Urea Nitrogen) 10 mg/dL (9.8-20.1); Calc. Creatinine Clearance 129 mL/min (70-130); Estimated GFR-MDRD 79
[2017-04-24 07:57] LABS: AST (SGOT) 143 U/L (5-34)
[2017-04-24 07:58] LABS: ALT (SGPT) 374 U/L (8-55); Bilirubin, Direct 0.2 mg/dL (0.1-0.3)
[2017-04-24] MEDS: Folic Acid 1 MG TAB PO SCH (08:06)
[2017-04-24] MEDS: Pantoprazole 40 MG VIAL IVP SCH (08:07)
--- NOTE | 2017-04-24 12:45 | PRG ---
DATE OF SERVICE: 04/24/2017 SUBJECTIVE: Ms. Tejeda is a 57-year-old woman, who is postoperative day #2, status post laparoscopi c cholecystectomy with normal intraoperative cholangiogram. The patient is also status post resolved gallstone pancreatitis. She reports adequate pain control today. She is tolerating a diet, having normal bowel and urinary function. PHYSICAL EXAMINATION: VITAL SIGNS: Includes blood pressure 142/75, pulse 60, respiratory 16, temperature 98.6 degrees Fahr enheit, and oxygen saturation is 95% on room air. HEENT: Reveals normocephalic and atraumatic. Pupils are equal, round, and reactive to light and acc ommodation. Extraocular muscles are intact bilaterally. She has no sclerae icterus present. Oral m ucosa is pink and moist. No lesions are noted. NECK: Supple. No palpable lymphadenopathy or thyromegaly present. HEART: Reveals regular rate and rhythm, no murmurs or gallops auscultated. LUNGS: Clear to auscultation bilaterally. Breathing is regular and unlabored. ABDOMEN: Soft. Incisions site intact, clean, dry with acceptable incisional tenderness to palpation . She clearly has no gross rebound tenderness present. NEUROLOGIC: Reveals no focal deficits present. LABORATORY DATA: Today includes CBC with 6400 white blood cells, hemoglobin and hematocrit stable at 12.5 and 36.3 respectively. Platelet count is normal at 214,000. Metabolic profile today includes p otassium 4.0, chloride is 104, bicarbonate is 27, BUN 10, and creatinine 0.76. AST is normalizing at 143, ALT 374. This is in contrast with 1007 and 32 respectively on 04/22/2017. Alkaline phosphatase is normal at 112. Serum lipase today is normal at 57. This is in contrast to lipase of 1922 on 04/22/2017. IMPRESSION: 1. Postoperative day #2, status post laparoscopic cholecystectomy with normal intraoperative cholang iogram. 2. Resolved gallstone pancreatitis. PLAN: Advance diet and activity. The patient is certainly stable to be discharged home today from s urgical standpoint. She follows up with me in the [facility] in 2 weeks. She is to call me with any questions or pro blems in the interim. She has been provided with a prescription for tramadol. With the followup appointment in 2 weeks, she is to obtain repeat LFTs prior to that clinic appointme nt. The above findings and plan discussed with the patient who indicates understanding of the inform ation given. I answered her questions. The patient has expressed gratitude for the care rendered to her during this hospitalization and surg didi.
[2017-04-24 14:29] VITALS: BP 126/53; TEMP 98.4
--- NOTE | 2017-04-24 15:17 | DIS ---
DATE OF ADMISSION: 04/21/2017 DATE OF DISCHARGE: 04/24/2017 CONDITION AT THE TIME OF DISCHARGE: Stable and improved. PRIMARY CARE PHYSICIAN: Lucian Chapa D.O. DISCHARGE DIAGNOSES: 1. Gallstone pancreatitis. 2. Cholecystitis. 3. Cholelithiasis. 4. Abnormal liver enzymes secondary to #1 and #2. 5. Obesity with a BMI of 34. DISCHARGE MEDICATIONS: Florastor 250 mg p.o. daily for 7 days, Zofran as needed q.6 hours 4 mg, Augm entin 875/125 one tablet p.o. b.i.d. for 5 more days. PROCEDURES DONE IN THE HOSPITAL: 1. CT scan of the abdomen and pelvis on 04/21/2017 which shows cholelithiasis with mild gallbladder distention, colonic diverticulosis without any evidence of diverticulitis or appendicitis. 2. Abdominal ultrasound on 04/22/2017 which shows cholelithiasis with at least 1 large gallstone as well as some gallbladder wall thickening and minimal pericholecystic fluid with a positive Maddox sig n concerning for acute cholecystitis without any ductal dilatation. 3. Laparoscopic cholecystectomy with intraoperative cholangiogram which was negative on 04/22/2017. CONSULTATIONS: 1. Gastroenterology, Dr. Moe Palmer. 2. General Surgery, Dr. Buitrago. HISTORY OF PRESENT ILLNESS: Ms. Tejeda is a pleasant 57-year-old female without any significant pas t medical history who presented to the emergency room with complaints of abdominal pain. It was acut e onset and she thought that this might be related to her heart or her recent hysterectomy 3 months a go and came to the emergency room. Here, a CT scan of the abdomen was done which showed evidence of pancreatitis. She was found to have elevated lipase levels. She was started on IV fluids and IV aleksandar n medications and [facility] team was consulted for admission. It seemed that her acute pancreat itis was either because of her history of alcohol or because of the finding of gallstones and CT scan . GI was consulted upon admission for pancreatitis. Her lipase at the time of admission was elevate d to 904. Her total bilirubin upon admission was within normal limits; however, her AST was 83, ALT was 54 and alkaline phosphatase was normal. Please see admission history and physical for further de tail. HOSPITAL COURSE: She underwent an abdominal ultrasound which confirmed the finding of gallstones and the diagnosis changed from alcoholic pancreatitis to gallstone pancreatitis. GI recommended n.p.o., IV fluids, analgesia and surgical consultation. This was done and Dr. Buitrago saw the patient, he agr eed that she needs a laparoscopic cholecystectomy. This was done and intraoperative cholangiogram wa s also done which was negative. She tolerated the procedure very well and was walking ambulating in the hallways shortly after the procedure. The procedure was done yesterday and this morning she has been able to tolerate regular diet without any symptoms and will be discharged home. Surgical team mary as also cleared her for discharge home today. She was seen and examined prior to discharge. She is walking around in the hallways. PHYSICAL EXAMINATION: VITAL SIGNS: This morning, temperature 98.6, pulse of 60, respirations 16, saturating 95% on room ai r, blood pressure 142/75. GENERAL: In no acute distress. CHEST: Clear to auscultation bilaterally. HEART: Rate and rhythm is regular. ABDOMEN: Soft, nontender, nondistended. Surgical scars without any erythema, oozing or dehiscence. LABORATORY DATA: This morning, her lipase is 57, AST is 143, down from 1000, ALT is 374 down from 93 2. AST and bilirubin within normal limits. Triglyceride levels normal. Hepatitis panel negative. FOLLOWUP: She will follow up with Dr. Buitrago in 14 days and her primary care physician, Dr. Lucian pastor in 7 days. Discharge plan was discussed with the patient who verbalized understanding. Prescriptions were provi ded. Total time spent in the discharge of this patient 32 minutes.
== END 2017-04-24 15:18 | disposition home or self-care (01) | DRG 417 ==
LOC: ERS 16:19 → T4-A 19:46
PROVIDERS: ADMIT Emergency Medicine; ATTEND Emergency Medicine
PROC: 0FT44ZZ Resection of Gallbladder, Percutaneous Endoscopic Approach (ICD-10-PCS; principal; 2017-04-22)
PROC: BF100ZZ Fluoroscopy of Bile Ducts using High Osmolar Contrast (ICD-10-PCS; 2017-04-22)
DX: K80.00 Calculus of gallbladder with acute cholecystitis without obstruction (principal); K85.10 Biliary acute pancreatitis without necrosis or infection; E86.0 Dehydration; E66.9 Obesity, unspecified; Z68.34 Body mass index [BMI] 34.0-34.9, adult
CPT/HCPCS: 36415; 47532; 71045; 74177; 76705; 80048; 80053; 80061; 80074; 80076; 82248; 82553; 83690; 84478; 84484; 85025; 88304; 93005; 96361; 96374; 96375; 96376; A4216; C9113; J1100; J1650; J1885; J2001; J2185; J2270; J2405; J2704; J3010; J7050; Q9961

== ENCOUNTER 2017-08-29 11:22 | Outpatient (CLI) | payer BC | END 2017-08-29 11:23 | disposition home or self-care (01) | LOC: BICMAMMO 11:22 | PROVIDERS: ATTEND Obstetrics & Gynecology | DX: Z12.31 Encounter for screening mammogram for malignant neoplasm of breast (principal) | CPT/HCPCS: 77063; 77067 ==

== ENCOUNTER 2017-08-30 07:39 | Outpatient (CLI) | payer BC ==
--- NOTE | 2017-08-30 11:49 | NM ---
CARDIAC SPECT WITH EF AND WALL MOTION: HISTORY: A 57-year-old female with a history of chest pain, family history of coronary artery disease, asthma, DVT. This is a sestamibi study using Jim protocol. The patient was injected with 31.4 mCi Technetium 99m sestamibi intravenously for stress images and t he patient was injected with 9.2 mCi Technetium 99m sestamibi intravenously for resting images. Multiple SPECT images in the short axis, vertical long axis, and horizontal long axis demonstrate no scan evidence for infarct or ischemia. TID 0.91. LHR 0.36. EDV 82 mL. EF is 75%. MYOCARDIAL PERFUSION WALL MOTION: Wall motion is normal. IMPRESSION: Normal cardiac SPECT with ejection fraction and wall motion. POS: [facility]
--- NOTE | 2017-09-01 11:52 | STRESS ---
Acquisition Time: 2017-08-30 09:24:29 Total Exercise Time: 00:10:00 Test Indications: FAM HX CAD Medications: Protocol: GAYLE Max HR: 162 BPM 98% of Pred: 165 BPM Max BP: 168/088 mmHG Max Work Load: 13.4 METS RESTING ECG: NORMAL SINUS RHYTHM AT 61 BPM SYMPTOMS: DYSPNEA ON EXERTION NORMAL BP RESPONSE ECTOPY: RARE PVC'S ECG STRESS: NO SIGNIFICANT CHANGES INTERPRETATION: NEGATIVE GXT /AWAIT NUCLEAR IMAGES FOR DEFINITIVE DIAGNOSIS Confirmed by WENDI ALANIS ([id number]), film editor supervisor JOHNY VALENTIN ([id number]) on 09/01/2017 11:51:28 AM Referred By: MD Katharine MYERS Confirmed By:WENDI ALANIS
== END 2017-08-30 07:40 | disposition home or self-care (01) ==
LOC: NM 07:39
PROVIDERS: ATTEND Family Medicine
DX: Z82.49 Family history of ischemic heart disease and other diseases of the circulatory system (principal)
CPT/HCPCS: 78452; 93017; A9500

== ENCOUNTER 2019-03-24 07:33 | Outpatient (CLI) | payer BC ==
--- NOTE | 2019-03-24 10:52 | MRI ---
MRI BRAIN WITH AND WITHOUT CONTRAST: Date: 03/24/2019 INDICATION: Headache. FINDINGS: Ventricles have normal size and position. No evidence of restricted diffusion. No mass or edema. No s ignificant white matter abnormality. Mild hyperintensities in the periventricular region may represen t chronic ischemic white matter change, not unusual for patient's age. Review of postcontrast images show no evidence of abnormal enhancement. The intracranial internal carotid arteries, cerebral arteries, basilar artery, and dural venous sinus es all show expected flow-voids. Paranasal sinuses appear clear. IMPRESSION: Unremarkable MRI brain. POS: [facility]
[2019-03-24] MEDS ORDERED: Magnevist 469MG/ML 20 ML VIAL ONE (14:25)
== END 2019-03-24 07:34 | disposition home or self-care (01) ==
LOC: BICMRI 07:33
PROVIDERS: ATTEND Family Medicine
DX: R51 Headache (principal); R11.0 Nausea
CPT/HCPCS: 70553; A9579

== ENCOUNTER 2019-08-21 09:06 | Outpatient (CLI) | payer BC ==
--- NOTE | 2019-08-21 10:45 | MMO ---
Bilateral MAMMO Bilat Screen [facility]. CLINICAL HISTORY: Patient is 59 years old and is seen for screening. The patient has no family history of breast cancer. The patient has no personal history of cancer. VIEWS: The views performed were: bilateral craniocaudal with tomosynthesis and bilateral mediolateral oblique with tomosynthesis. FILMS COMPARED: The present examination has been compared to prior imaging studies performed at [facility] on 08/23/2016 and 08/29/2017. This study has been interpreted with the assistance of computer-aided detection. MAMMOGRAM FINDINGS: There are scattered fibroglandular densities. There are no suspicious masses, suspicious calcifications, or new areas of architectural distortion. IMPRESSION: THERE IS NO MAMMOGRAPHIC EVIDENCE OF MALIGNANCY. A ROUTINE FOLLOW-UP MAMMOGRAM IN 1 YEAR IS RECOMMENDED. THE RESULTS OF THIS EXAM WERE SENT TO THE PATIENT. ACR BI-RADS Category 1 - Negative MAMMOGRAPHY NOTE: 1. A negative mammogram report should not delay a biopsy if a dominant of clinically suspicious mass is present. 2. Approximately 10% to 15% of breast cancers are not detected by mammography. 3. Adenosis and dense breasts may obscure an underlying neoplasm. Reported by: ALEN JOSE MD Electonically Signed: [id number]
== END 2019-08-21 09:07 | disposition home or self-care (01) ==
LOC: BICMAMMO 09:06
PROVIDERS: ATTEND Family Medicine
DX: Z12.31 Encounter for screening mammogram for malignant neoplasm of breast (principal)
CPT/HCPCS: 77063; 77067